=== PATIENT | female | born 1955 | race Caucasian/White ===

== ENCOUNTER 2020-11-26 07:52 | Emergency (ER) | payer SELFPAY ==
[2020-11-26 08:03] VITALS: BP 136/97
--- NOTE | 2020-11-26 08:19 | NUR ---
ASSIST PRIMARY RN WITH TRIAGE. PT PLACED ON ALL ROOM MONITORING. RA SAT MAINTAINED AT 92-94%. PT STATES BREATHING EASIER, CP DECREASED TO 5/10. EKG COMPLETED ON ARRIVAL. WARM BLANKET PROVIDED, CALL LIGHT WITHIN REACH. REPORT TO YAMINI FLORES.
[2020-11-26] MEDS ORDERED: SODIUM CHLORIDE FLUSH 10ML SYR IVF ONE (08:30)
[2020-11-26] MEDS ORDERED: PLEASE ENTER ALLERGIES MC SCH (08:30)
[2020-11-26] MEDS ORDERED: PLEASE ENTER HEIGHT AND WEIGHT MC SCH (08:30)
[2020-11-26] MEDS ORDERED: methylPREDNISolone SOD SUCC 125 MG/2 ML IVPB ONE (08:30)
--- NOTE | 2020-11-26 08:46 | NUR ---
PT REFUSED DOLORES ME LAW NOTIFIED Addendum: 11/26/20 at 0855 by HANKICECYNTHIA PT REFUSED MD DOLORES LAW NOTIFIED
[2020-11-26 08:52] LABS: BASOPHILS % (AUTO) 1 % (0-1); EOSINOPHILS % (AUTO) 3 % (1-7); LYMPHOCYTES % (AUTO) 14 % (22-44); MEAN CORPUSCULAR HEMOGLOBIN 28.6 pg (27.0-34.8); MEAN CORPUSCULAR HGB CONC 33.9 g/dL (32.4-35.8); MEAN PLATELET VOLUME 7.9 fL (7.4-10.4); MONOCYTES % (AUTO) 8 % (2-9); NEUTROPHILS % (AUTO) 75 % (42-75); PLATELET COUNT 293 x10^3/uL (130-400); RED BLOOD COUNT 4.05 x10^6/uL (3.82-5.3); RED CELL DISTRIBUTION WIDTH 13.9 % (9.6-15.2)
--- NOTE | 2020-11-26 08:57 | NUR ---
TASK RN NOTE: PT SITTING UP ON SIDE OF BED. NAD NOTED AT THIS TIME.
[2020-11-26 09:05] LABS: ALANINE AMINOTRANSFERASE 14 U/L (12-78); ALBUMIN 2.9 g/dL (3.4-5.0); ANION GAP 8 mmol/L (5-15); CALCIUM 8.8 mg/dL (8.5-10.1); CHLORIDE 113 mmol/L (98-107)
[2020-11-26 09:07] LABS: ALKALINE PHOSPHATASE 182 U/L (45-117); BILIRUBIN,TOTAL 0.4 mg/dL (0.2-1.0); CREATININE 0.83 mg/dL (0.55-1.02); TOTAL PROTEIN 7.4 g/dL (6.4-8.2); TROPONIN I 0.054 ng/mL (0.000-0.045)
--- NOTE | 2020-11-26 09:18 | NUR ---
PT LEFT ROOM AND IS REFUSING FURTHER TREATMENT. REFUSING TO SIGN AMA PAPERWORK. MD TERAN ADVISED.
== END 2020-11-26 09:21 | disposition left against medical advice (07) ==
LOC: ED 09:16
DX: J44.1 Chronic obstructive pulmonary disease with (acute) exacerbation (principal); R07.89 Other chest pain; I25.2 Old myocardial infarction; F17.200 Nicotine dependence, unspecified, uncomplicated
CPT/HCPCS: 36415; 71045; 80053; 84484; 85025; 93005; 99285

== ENCOUNTER 2020-12-02 00:18 | Inpatient (IN) | payer SELFPAY ==
[~2020-12-02] VITALS: Ht 157.5 cm; Wt 49.9 kg
[~2020-12-02 00:18] MED LIST: OMNIPAQUE 350 MG/ML, 100ML BOTTLE ONE
[2020-12-02] MEDS ORDERED: SODIUM CHLORIDE FLUSH 10ML SYR IVF ONE (01:00)
[2020-12-02] MEDS ORDERED: ONDANSETRON 2MG/ML, 2ML IVPush ONE (01:00)
[2020-12-02] MEDS ORDERED: SODIUM CHLORIDE 0.9% 1,000ML IVBOLUS ONE (01:00)
[2020-12-02] MEDS ORDERED: HYDROmorphone 1 MG/ML, 1ML INJ IV ONE (01:00)
[2020-12-02 01:20] LABS: BASOPHILS % (AUTO) 0 % (0-1); EOSINOPHILS % (AUTO) 1 % (1-7); LYMPHOCYTES % (AUTO) 6 % (22-44); MEAN CORPUSCULAR HEMOGLOBIN 28.2 pg (27.0-34.8); MEAN CORPUSCULAR HGB CONC 33.1 g/dL (32.4-35.8); MONOCYTES % (AUTO) 6 % (2-9); NEUTROPHILS % (AUTO) 87 % (42-75); PLATELET COUNT 264 x10^3/uL (130-400); RED BLOOD COUNT 3.93 x10^6/uL (3.82-5.3); RED CELL DISTRIBUTION WIDTH 14.4 % (9.6-15.2)
--- NOTE | 2020-12-02 01:48 | NUR ---
PT SLEEPING SOUNDLY, ERP UPDATED, HOLD MEDS AT THIS TIME.
[2020-12-02 01:53] LABS: ALANINE AMINOTRANSFERASE 16 U/L (12-78); ALBUMIN 2.6 g/dL (3.4-5.0); ANION GAP 7 mmol/L (5-15); CALCIUM 8.4 mg/dL (8.5-10.1); CHLORIDE 106 mmol/L (98-107); CREATININE 0.79 mg/dL (0.55-1.02)
[2020-12-02 01:55] LABS: ALKALINE PHOSPHATASE 152 U/L (45-117); BILIRUBIN,TOTAL 0.7 mg/dL (0.2-1.0); TOTAL PROTEIN 7.2 g/dL (6.4-8.2)
[2020-12-02] MEDS ORDERED: POTASSIUM CHLORIDE 20 MEQ TAB.ER.PRT PO ONE ×2 (02:30→11:30)
[2020-12-02] MEDS ORDERED: POTASSIUM CHLORIDE 20 MEQ TAB.ER.PRT ONE (03:12)
--- NOTE | 2020-12-02 03:12 | NUR ---
TASK RN. PT PULLED RN INTO ROOM, STATES SHE FELT LIKE SHE WAS CHOKING. LUNG SOUNDS CLEAR IN ALL BENZ AND SP02 96% 2 L NC. PT ABLE TO CALM DOWN AND BREATHING BECOMING MUCH MORE CONTROLLED. PIV JUST PLACED BY ULTRASOUND.
[2020-12-02] MEDS ORDERED: HYDROmorphone 2 MG/ML, 1ML ONE (03:13)
[2020-12-02] MEDS ORDERED: ONDANSETRON 2MG/ML, 2ML ONE (03:13)
--- NOTE | 2020-12-02 03:21 | NUR ---
TASK RN: PT MEDICATED PER EMAR. PT VERY ANXIOUS AT THIS TIME. PRIMARY RN UPDATED. PT TO GO TO CT
--- NOTE | 2020-12-02 04:31 | NUR ---
URINE SENT TO LAB
[2020-12-02 04:48] LABS: MICROSCOPIC AUTO
--- NOTE | 2020-12-02 07:00 | NUR ---
report received from RN Morena, pt sleeping, resps even and unlabored. awaiting oncology bed and transport. care assumed by this RN at this time.
--- NOTE | 2020-12-02 08:19 | NUR ---
pt awoke at 0755, called RN to report chest pain and shortness of breath. pt states "it just started." pt is fidgeting, anxious, rocking back and forth. pt able to speak in full sentences without difficulty. EKG taken by EDTA, reviewed by GEORGINA Molina. CT and MRI techs arrived to collect pt for imaging, pt unable to hold still for more than a few seconds at a time. Hospitalist MD Garcia called to notify, instructed RN to hold CT/MRI at this time, also ordered CXR, ABG, nitro 0.4 mg x 3 q5min, aspirin 162 mg. Addendum: 12/02/20 at 0857 by JUAN pt awoke at 0755, called RN to report chest pain and shortness of breath. pt states "it just started." pt is fidgeting, anxious, rocking back and forth. pt able to speak in full sentences without difficulty. EKG taken by EDTA, reviewed by GEORGINA Molina. CT and MRI techs arrived to collect pt for imaging, pt unable to hold still for more than a few seconds at a time. Hospitalist MD Garcia called to notify, instructed RN to hold CT/MRI at this time, also ordered CXR, ABG, troponin x 1, nitro 0.4 mg x 3 q5min, aspirin 162 mg.
[2020-12-02] MEDS ORDERED: NITROGLYCERIN SINGLE TAB 0.4 MG SL ONE (08:27)
[2020-12-02] MEDS ORDERED: ASPIRIN 81 MG TABLET CHEW ONE (08:27)
[2020-12-02] MEDS: NITROGLYCERIN 0.4 MG BOTTLE (25 TABS) SL PRN ×3 (08:29→09:12)
--- NOTE | 2020-12-02 08:37 | NUR ---
PT NOTES CHEST PAIN IMPROVED FROM 12/29 TO 09/28, PT ANXIETY DECREASED. RESPS EVEN AND UNLABORED. NSR ON ROD HANGER RATE 70'S WITH FREQUENT PAC'S.
--- NOTE | 2020-12-02 08:56 | NUR ---
LAB CALLED TO DRAW PT FOR ABG AND TROPONIN.
[2020-12-02] MEDS ORDERED: ASPIRIN 81 MG TABLET CHEW PO ONE (09:00)
--- NOTE | 2020-12-02 09:06 | NUR ---
PT NOTES CHEST PAIN NOW AT LEVEL 4. TOLERATING NITRO WELL. LAB AT BEDSIDE FOR TROP/ABG.
--- NOTE | 2020-12-02 09:17 | NUR ---
ABG FAILED X 2 BY LAB, SECOND TECH TO ATTEMPT. TROPONIN DRAW IN PROGRESS. PT NOTES CHEST PAIN NOW 3/10, RESPS EVEN AND UNLABORED, PT LESS ANXIOUS. PT IS NSR RATE 80'S ON TELEPHONE MAINTAINER WITH OCCAISIONAL PAC'S.
--- NOTE | 2020-12-02 09:44 | NUR ---
pt initially improved after nitro x 3, now increased work of breathing, anxious, c/o sob. pt pulled out own iv. second ekg taken, reviewed by padmini eid, also negative. MD Garcia notified. ordered ativan 1mg q6hr prn anxiety, RT protocol, and admit to cardiac telemetry.
--- NOTE | 2020-12-02 09:46 | NUR ---
RT Cathryn evaluated pt, states lungs sound clear and pt does not require breathing tx at this time.
[2020-12-02 09:47] LABS: TROPONIN I 0.028 ng/mL (0.000-0.045)
[2020-12-02] MEDS ORDERED: LORazepam 2 MG/ML, 1ML IVPush PRN (10:00)
[2020-12-02] MEDS ORDERED: ALBUTEROL SULFATE 2.5 MG/3 ML NPPB PRN (10:30)
--- NOTE | 2020-12-02 10:30 | NUR ---
late entry for 1030: piv attempted x 1 by edta and this rn, no success. task rn to place us guided piv.
[2020-12-02] MEDS ORDERED: LORazepam 2 MG/ML, 1ML ONE (10:52)
--- NOTE | 2020-12-02 11:15 | NUR ---
PIV established with ultrasound by MARK Sharpe. pt medicated per emar with ativan, tolerated well. pt a&o, resps even and unlabored, nadn. pt awaiting card tele bed and transport.
--- NOTE | 2020-12-02 11:29 | NUR ---
report called to receiving MARK Mas. pt awaiting transport at this time.
[2020-12-02] MEDS ORDERED: ONDANSETRON 2MG/ML, 2ML IVPush PRN (11:30)
[2020-12-02] MEDS ORDERED: NITROGLYCERIN 0.4 MG BOTTLE (25 TABS) SL PRN (11:30)
[2020-12-02] MEDS: CARVEDILOL 3.125 MG TABLET PO SCH ×2 (11:30→17:54)
[2020-12-02] MEDS ORDERED: ONDANSETRON ODT 4 MG PO PRN (11:30)
[2020-12-02] MEDS ORDERED: ACETAMINOPHEN 325 MG TABLET PO PRN (11:30)
[2020-12-02] MEDS ORDERED: SODIUM CHLORIDE 0.9% 1,000 ML IV SCH (11:30)
--- NOTE | 2020-12-02 11:39 | NUR ---
UNABLE TO COMPLETE MED REC, PT STATES SHE DOES NOT REMEMBER HOME MEDS.
[2020-12-02 12:45] VITALS: BP 167/78
[2020-12-02] MEDS: HEPARIN 5,000 UNITS/ML, 1ML SQ SCH (13:35)
[2020-12-02] MEDS: NS + 40MEQ KCL 1,000 ML IV SCH (14:12)
[2020-12-02 19:59] VITALS: BP 160/80
[2020-12-02] MEDS ORDERED: ATORVASTATIN 40 MG TABLET PO SCH (21:00)
[2020-12-03] MEDS: HEPARIN 5,000 UNITS/ML, 1ML SQ SCH ×2 (00:39→11:11)
[2020-12-03 00:40] VITALS: BP 174/82
[2020-12-03] MEDS ORDERED: LABETALOL 5MG/ML, 20ML IVPush PRN (01:00)
[2020-12-03] MEDS: CARVEDILOL 3.125 MG TABLET PO SCH (06:07)
[2020-12-03 06:39] LABS: AMPHETAMINE SCREEN, URINE Positive (Negative); BARBITURATE SCREEN, URINE Negative (Negative); BENZODIAZEPINE SCREEN, URINE Negative (Negative); CANNABINOID SCREEN, URINE Negative (Negative); COCAINE SCREEN, URINE Negative (Negative); METHADONE SCREEN, URINE Negative (Negative); OPIATE SCREEN, URINE Positive (Negative)
[2020-12-03] MEDS: NS + 40MEQ KCL 1,000 ML IV SCH (06:40)
[2020-12-03 07:01] VITALS: BP 172/80
[2020-12-03 11:44] LABS: BASOPHILS % (AUTO) 0 % (0-1); EOSINOPHILS % (AUTO) 1 % (1-7); LYMPHOCYTES % (AUTO) 6 % (22-44); MEAN CORPUSCULAR HEMOGLOBIN 27.9 pg (27.0-34.8); MEAN CORPUSCULAR HGB CONC 32.7 g/dL (32.4-35.8); MEAN PLATELET VOLUME 7.7 fL (7.4-10.4); MONOCYTES % (AUTO) 5 % (2-9); NEUTROPHILS % (AUTO) 88 % (42-75); PLATELET COUNT 305 x10^3/uL (130-400); RED BLOOD COUNT 3.48 x10^6/uL (3.82-5.3); RED CELL DISTRIBUTION WIDTH 14.5 % (9.6-15.2)
[2020-12-03 11:52] LABS: ANION GAP 7 mmol/L (5-15); CALCIUM 8.5 mg/dL (8.5-10.1); CHLORIDE 111 mmol/L (98-107); CREATININE 0.62 mg/dL (0.55-1.02)
[2020-12-03 12:18] VITALS: BP 156/73
[2020-12-03] MEDS ORDERED: CARVEDILOL 3.125 MG TABLET PO SCH (18:00)
== END 2020-12-03 13:00 | disposition left against medical advice (07) | DRG 375 ==
LOC: ED 01:25 → EDIP 05:15 → 3N 08:05 → EDIP 11:21 → 5SO 11:40
PROVIDERS: ADMIT Internal Medicine; ATTEND Internal Medicine
PROC: 0T9B70Z Drainage of Bladder with Drainage Device, Via Natural or Artificial Opening (ICD-10-PCS; principal; 2020-12-02)
DX: C18.0 Malignant neoplasm of cecum (principal); J44.1 Chronic obstructive pulmonary disease with (acute) exacerbation; E87.1 Hypo-osmolality and hyponatremia; D72.829 Elevated white blood cell count, unspecified; E87.6 Hypokalemia; I50.9 Heart failure, unspecified; I11.0 Hypertensive heart disease with heart failure; R10.31 Right lower quadrant pain; Z53.29 Procedure and treatment not carried out because of patient's decision for other reasons; Z20.822 Contact with and (suspected) exposure to COVID-19
CPT/HCPCS: 36415; 36600; 71045; 74177; 80048; 80053; 80307; 81001; 82803; 83605; 83690; 83735; 83880; 84484; 85025; 93005; 96361; 96374; 96375; 99285; G0378; J1170; J1644; J2405; Q9967; U0005; J2060; J3480; J7030; U0003